=== PATIENT | male | born 1995 | race American Indian/Alaskan Native ===

== ENCOUNTER 2021-01-24 02:26 | Emergency (ER) | payer SELFPAY ==
[2021-01-24 05:23] VITALS: BP 124/72
== END 2021-01-24 05:26 | disposition home or self-care (01) ==
LOC: ED 02:26
DX: I49.3 Ventricular premature depolarization (principal); F12.20 Cannabis dependence, uncomplicated; Z72.89 Other problems related to lifestyle; Z79.899 Other long term (current) drug therapy
CPT/HCPCS: 71045; 93005; 99283